=== PATIENT | female | born 1995 | race African-American/Black ===

== ENCOUNTER 2021-03-08 13:45 | Outpatient (CLI) | payer OTHER ==
[2021-03-09 01:18] LABS: SARS-CoV-2 PCR by NAA Not Detected (NotDetected)
== END 2021-03-08 13:46 | disposition home or self-care (01) ==
LOC: CSHLAB 13:45
PROVIDERS: ATTEND Family Medicine
DX: Z20.822 Contact with and (suspected) exposure to COVID-19 (principal)
CPT/HCPCS: 87635; U0003; U0005

== ENCOUNTER 2021-03-09 16:23 | Day surgery (SDC) | payer OTHER ==
[2021-03-09] MEDS ORDERED: Promethazine HCl 25 MG/ML VIAL IM PRN (16:27)
[2021-03-09] MEDS ORDERED: Acetaminophen 500 MG TAB PO PRN (16:27)
== END 2021-03-09 17:50 | disposition home or self-care (01) ==
LOC: CSHLD/OP 16:23
PROVIDERS: ATTEND Family Medicine
PROC: 0UCC7ZZ Extirpation of Matter from Cervix, Via Natural or Artificial Opening (ICD-10-PCS; principal; 2021-03-09)
DX: O34.33 Maternal care for cervical incompetence, third trimester (principal); Z3A.36 36 weeks gestation of pregnancy
CPT/HCPCS: 59899; 76819; 99282

== ENCOUNTER 2021-03-13 10:11 | Day surgery (SDC) | payer OTHER ==
[2021-03-13 10:55] VITALS: BMI 34.8
[2021-03-13] MEDS ORDERED: hydrALAZINE 20 MG/ML VIAL SLOW IVP PRN (11:10)
[2021-03-13] MEDS ORDERED: Ondansetron PF 4 MG/2 ML Vial IVP SCH (11:15)
[2021-03-13] MEDS ORDERED: hydrOXYzine 25 MG TAB PO SCH (11:15)
[2021-03-13] MEDS ORDERED: Lactated Ringer's 1,000 ML IV SCH (11:15)
[2021-03-13] MEDS ORDERED: Ondansetron PF 4 MG/2 ML Vial ONE (11:21)
[2021-03-13 13:16] LABS: ALT (SGPT) 13 U/L (8-55); AST (SGOT) 12 U/L (5-34); Albumin 3.4 g/dL (3.5-5.0); Alkaline Phosphatase 119 U/L (40-110); Anion Gap 16 mmol/L (10-20); BUN (Urea Nitrogen) 4 mg/dL (7.0-18.7); Bilirubin, Total 0.5 mg/dL (0.2-1.2); Calc. Creatinine Clearance 257 mL/min (70-130); Calcium 8.8 mg/dL (7.8-10.44); Carbon Dioxide 20 mmol/L (22-29); Chloride 104 mmol/L (98-107); Globulin 3.4 g/dL (2.4-3.5); Glucose 96 mg/dL (70-105); Potassium 3.5 mmol/L (3.5-5.1); Protein, Total 6.8 g/dL (6.0-8.3); Sodium 136 mmol/L (136-145)
[2021-03-13 13:18] LABS: Amnisure Test No Membranes Rupture (No Rupture)
== END 2021-03-13 14:35 | disposition home or self-care (01) ==
LOC: CSHLD/OP 10:11
PROVIDERS: ATTEND Family Medicine
DX: O99.613 Diseases of the digestive system complicating pregnancy, third trimester (principal); A08.4 Viral intestinal infection, unspecified; O47.03 False labor before 37 completed weeks of gestation, third trimester; O23.593 Infection of other part of genital tract in pregnancy, third trimester; B96.89 Other specified bacterial agents as the cause of diseases classified elsewhere; O09.293 Supervision of pregnancy with other poor reproductive or obstetric history, third trimester; Z3A.36 36 weeks gestation of pregnancy
CPT/HCPCS: 36415; 80053; 84112; 87480; 87510; 87660; 96360; 96361; 96375; 99285; J2405

== ENCOUNTER 2021-03-31 10:58 | Inpatient (IN) | payer OTHER ==
[2021-03-31] MEDS: Lactated Ringer's 1,000 ML IV SCH ×2 (11:35→13:00)
[2021-03-31] MEDS ORDERED: Misoprostol 200 MCG TAB PR PRN (12:09)
[2021-03-31] MEDS ORDERED: Lidocaine 1% (PF) 30 ML VIAL SC PRN (12:09)
[2021-03-31] MEDS ORDERED: HYDROcodone/Acetaminophen 5/325 mg Tablet PO PRN ×2 (12:09)
[2021-03-31] MEDS ORDERED: Acetaminophen 500 MG TAB PO PRN (12:09)
[2021-03-31] MEDS ORDERED: Diphenoxylate HCl/Atropine Tablet PO PRN ×2 (12:09)
[2021-03-31] MEDS ORDERED: Ibuprofen 800 MG TAB PO PRN (12:09)
[2021-03-31] MEDS ORDERED: hydrALAZINE 20 MG/ML VIAL SLOW IVP PRN (12:09)
[2021-03-31] MEDS ORDERED: Ondansetron PF 4 MG/2 ML Vial IVP PRN ×3 (12:09→22:01)
[2021-03-31] MEDS ORDERED: Carboprost 250 MCG/ML AMP IM PRN (12:09)
[2021-03-31] MEDS ORDERED: Methylergonovine 0.2 MG/ML VIAL IM PRN (12:09)
[2021-03-31] MEDS ORDERED: Butorphanol Tartrate 1 MG/ML VIAL SLOW IVP PRN (12:09)
[2021-03-31] MEDS ORDERED: Promethazine HCl 25 MG/ML VIAL IM PRN ×3 (12:09→22:01)
[2021-03-31] MEDS ORDERED: NS w/ Oxytocin 30 units 500 ML IV SCH (12:15)
[2021-03-31] MEDS ORDERED: Fentanyl 4 mcg/Bup 0.1% Cadd 100 ML ONE ×2 (12:17→19:01)
[2021-03-31 12:59] LABS: Hemoglobin 10.8 g/dL (12.0-15.5); Mean Corpuscular HGB CONC 31.3 g/dL (32.0-36.0); Mean Corpuscular Hemoglobin 25.1 pg (27.0-33.0); Mean Platelet Volume 10.5 fl (7.4-10.4); Platelet Count 269 10x3/uL (150-450); RBC Distribution Width 14.5 % (11.5-14.5); Red Blood Cell (RBC) Count 4.31 10x6/uL (3.90-5.03)
[2021-03-31 13:26] LABS: Hep B Surf Ag Non-Reactive S/CO (NonReactive); Syphilis Antibody Nonreactive (Nonreactive); Syphilis Antibody Index 0.04 S/CO (<1.00 Non-Reactive)
[2021-03-31 13:37] LABS: HBSAg Index 0.16 S/CO (0-0.99)
[2021-03-31 19:16] VITALS: BMI 35.2
[2021-03-31] MEDS ORDERED: Lactated Ringer's 500 ML IV PRN (19:32)
[2021-03-31] MEDS ORDERED: Eucerin (Mineral Oil/Petrolatum,White) 30 gm Jar TOP PRN (19:32)
[2021-03-31] MEDS ORDERED: diphenhydrAMINE 50 MG/ML VIAL IVP PRN ×2 (19:32→22:01)
[2021-03-31] MEDS ORDERED: Naloxone HCl 0.4 mg/ml Vial IVP PRN ×4 (19:32→22:01)
[2021-03-31] MEDS ORDERED: Acetaminophen 325 MG TAB PO PRN (19:32)
[2021-03-31] MEDS ORDERED: ePHEDrine 50 MG/ML VIAL SLOW IVP PRN (19:32)
[2021-03-31] MEDS ORDERED: Fentanyl 4 mcg/Bupivacaine 0.1% Cassette 100 ML EPIDURAL SCH (19:45)
[2021-03-31] MEDS ORDERED: Communication Order-Pharmacy FS SCH ×2 (19:45→22:15)
[2021-03-31] MEDS ORDERED: Azithromycin 500 MG VIAL ONE (20:17)
[2021-03-31] MEDS ORDERED: Ketorolac Tromethamine 30 MG/ML VIAL IVP PRN (22:01)
[2021-03-31] MEDS ORDERED: Hydrocerin (Eucerin) Cream 120 gm Jar TOP PRN (22:01)
[2021-03-31] MEDS ORDERED: Naloxone HCl 0.4 mg/ml Vial IV PRN (22:01)
[2021-03-31] MEDS ORDERED: Promethazine HCl 25 MG SUPP PR PRN (22:01)
[2021-03-31 23:27] LABS: pH (Cord, venous) 7.421 (7.250-7.350)
[2021-04-01] MEDS ORDERED: NS w/ Oxytocin 30 units 500 ML IV SCH (00:23)
[2021-04-01] MEDS ORDERED: hydrALAZINE 20 MG/ML VIAL SLOW IVP PRN (00:23)
[2021-04-01] MEDS ORDERED: HYDROcodone/Acetaminophen 5/325 mg Tablet PO PRN ×2 (00:23)
[2021-04-01] MEDS ORDERED: Ondansetron PF 4 MG/2 ML Vial IVP PRN (00:23)
[2021-04-01] MEDS ORDERED: Promethazine HCl 25 MG/ML VIAL IM PRN (00:23)
[2021-04-01] MEDS ORDERED: Bisacodyl 10 MG SUPP PR PRN (00:23)
[2021-04-01] MEDS ORDERED: Lanolin Ointment 7 GM TUBE TOP PRN (00:23)
[2021-04-01] MEDS ORDERED: diphenhydrAMINE 25 MG CAP PO PRN (00:23)
[2021-04-01] MEDS ORDERED: Ferrous Sulfate 325 MG TAB PO SCH (00:45)
[2021-04-01] MEDS ORDERED: Docusate Calcium (SURFAK) 240 MG CAP PO SCH (00:45)
[2021-04-01 01:06] LABS: SARS-CoV-2 PCR by NAA Not Detected (NotDetected)
[2021-04-01] MEDS: Ketorolac Tromethamine 30 MG/ML VIAL IVP SCH ×2 (05:21→14:39)
[2021-04-01 07:55] LABS: Hemoglobin 9.6 g/dL (12.0-15.5); Mean Corpuscular HGB CONC 31.6 g/dL (32.0-36.0); Mean Corpuscular Hemoglobin 25.4 pg (27.0-33.0); Mean Corpuscular Volume 80.4 fl (81.6-98.3); Mean Platelet Volume 10.4 fl (7.4-10.4); Platelet Count 238 10x3/uL (150-450); RBC Distribution Width 14.4 % (11.5-14.5); Red Blood Cell (RBC) Count 3.78 10x6/uL (3.90-5.03); White Blood Cell (WBC) Count 19.1 10x3/uL (3.5-10.5)
[2021-04-01] MEDS: Docusate Calcium (SURFAK) 240 MG CAP PO SCH ×2 (08:59→20:50)
[2021-04-01] MEDS: Ferrous Sulfate 325 MG TAB PO SCH ×2 (09:00→17:24)
[2021-04-01] MEDS ORDERED: Adacel (T-DAP) 0.5 ML SYRINGE IM ONE (09:00)
[2021-04-01] MEDS: Prenatal Vitamin 1 TAB PO SCH (09:00)
[2021-04-01] MEDS: HYDROcodone/Acetaminophen 5/325 mg Tablet PO PRN ×3 (09:18→20:50)
[2021-04-01] MEDS ORDERED: Meperidine HCl/PF 25 MG/ML VIAL IM PRN (10:15)
[2021-04-01] MEDS: Simethicone Chewable 80 MG TAB PO PRN (17:24)
[2021-04-01] MEDS: Ibuprofen 800 MG TAB PO SCH (17:24)
[2021-04-02] MEDS: Ibuprofen 800 MG TAB PO SCH ×3 (00:45→16:52)
[2021-04-02] MEDS: HYDROcodone/Acetaminophen 5/325 mg Tablet PO PRN ×5 (00:46→21:49)
[2021-04-02] MEDS: Ferrous Sulfate 325 MG TAB PO SCH ×2 (09:05→16:54)
[2021-04-02] MEDS: Docusate Calcium (SURFAK) 240 MG CAP PO SCH ×2 (09:05→21:43)
[2021-04-02] MEDS: Prenatal Vitamin 1 TAB PO SCH (09:05)
[2021-04-02] MEDS: Simethicone Chewable 80 MG TAB PO PRN (09:07)
[2021-04-03] MEDS: HYDROcodone/Acetaminophen 5/325 mg Tablet PO PRN ×2 (03:32→07:58)
[2021-04-03] MEDS: Ferrous Sulfate 325 MG TAB PO SCH (07:58)
[2021-04-03] MEDS: Docusate Calcium (SURFAK) 240 MG CAP PO SCH (07:59)
[2021-04-03] MEDS: Ibuprofen 800 MG TAB PO SCH ×2 (07:59)
[2021-04-03] MEDS: Prenatal Vitamin 1 TAB PO SCH (07:59)
[2021-04-03 08:01] VITALS: BP 120/74; TEMP 98.1
== END 2021-04-03 11:43 | disposition home or self-care (01) | DRG 786 ==
LOC: CSHLD/OP 10:58 → CSHLD 21:26 → CSHPP 04-01 00:36
PROVIDERS: ADMIT Family Medicine; ATTEND Family Medicine
PROC: 10D00Z1 Extraction of Products of Conception, Low, Open Approach (ICD-10-PCS; principal; 2021-03-31)
DX: O77.0 Labor and delivery complicated by meconium in amniotic fluid (principal); O34.33 Maternal care for cervical incompetence, third trimester; Z3A.39 39 weeks gestation of pregnancy; Z37.0 Single live birth; Z20.822 Contact with and (suspected) exposure to COVID-19; O76 Abnormality in fetal heart rate and rhythm complicating labor and delivery; O62.0 Primary inadequate contractions
CPT/HCPCS: 36415; 51702; 82805; 85027; 86780; 86850; 86900; 86901; 87340; 87635; 99285; J0456; J0690; J1100; J1885; J2250; J2274; J2405; J2590; J3010; U0003; U0005